=== PATIENT | female | born 1985 | race Caucasian/White ===

== ENCOUNTER → 2023-08-30 | Outpatient (CLI) | payer OTHER, SELFPAY ==
[2023-09-04 11:07] LABS: HPV APTIMA, High Risk Negative (Negative)
== END | disposition home or self-care (01) ==
LOC: LABSPEC 12:57
PROVIDERS: Referring Provider Advanced Practice Midwife; Visit Provider Advanced Practice Midwife
DX: Z12.4 Encounter for screening for malignant neoplasm of cervix (principal)
CPT/HCPCS: 87624; 88175; G0145

== ENCOUNTER → 2023-09-01 | Outpatient (CLI) | payer OTHER, SELFPAY ==
--- NOTE | 2023-09-01 11:13 | US_ITS ---
STUDY: ULTRASOUND OF THE FEMALE PELVIS - COMPLETE REASON FOR EXAM: Female, 37 years old. AUB LMP: August 15, 2023. TECHNIQUE: Transvaginal TECHNICAL QUALITY: Adequate. COMPARISON: None. FINDINGS: The uterus is retroflexed and is in a midline position. The uterus measures 9.7 cm x 5.6 x 4.9 cm. There is a Nabothian cyst of the cervix. The endometrium measures 23 mm in thickness, and is hyperechoic. There is a 2.3 cm x 2.7 sono by 1.2 cm echogenic nodule within the endometrium with vascularity. A neoplastic process should be ruled out. There is no demonstrated endometrial mass. There is no demonstrated myometrial mass. I.U.D. - The patient does not have an I.U.D. The right ovary is visualized. The right ovary measures 4.3 cm x 2.7 sono by 2.5 cm. There is no right ovarian cyst or ovarian mass. There is no visualized right adnexal mass or complex lesion. There is normal arterial and normal venous vascularity. The left ovary is visualized. The left ovary measures 6 cm x 4.6 x 4.6 cm. There is a 5.4 cm x 4.3 cm x 3.8 cm complex cystic mass in the ovary. There is also evidence of heterogeneous mass measuring 1.6 cm x 1.5 cm x 1.2 cm. There is no visualized left adnexal mass or complex lesion. There is normal arterial and normal venous vascularity. There is minimal fluid in the cul-de-sac. US/Transvaginal Non- IMPRESSION: 2.3 cm x 2.7 cm x 1.2 cm echogenic mass in the endometrium with vascularity. A neoplastic process should BE ruled out. There is a dominant 5.4 cm x 4.3 cm x 3.8 cm complex mass in the left ovary. Small amount of free fluid is seen in the cul-de-sac. Electronically Signed: Arpit Christian MD at 12:39 EDT ,
[2023-09-01 11:24] LABS: Absolute Lymphocyte Count 1.63 X10^3/uL (0.83-4.51); Absolute Neutrophil Count 4.1 X10^3/uL (2.0-7.7); Basophil# 0.04 X10^3/uL; Basophil% 0.6 % (0-1); Eosinophil# 0.25 X10^3/uL; Eosinophils% 3.8 % (0-5); Hematocrit 36.1 % (37-47); Hemoglobin 11.5 g/dL (12.0-15.0); Lymphocyte # 1.63 X10^3/ul (0.83-4.51); Lymphocyte % 24.7 % (19-41); Mean Corp Hgb Conc 31.9 g/dL (32-36); Mean Corpuscular Hgb 27.3 pg (27.0-32.0); Mean Corpuscular Volume 85.7 fL (81-99); Mean Platelet Vol. 10.7 fl (6.2-12.0); Monocyte% 9.1 % (0-10); NRBC Flagged by Analyzer 0 % (0-5); Neutrophil # 4.07 X10^3/uL (2.7-7.7); Neutrophil % 61.6 % (47-70); Platelet Count 300 K/mm3 (150-450); RBC Distribution Width SD 43.2 fl (35.1-43.9); Red Blood Count 4.21 M/mm3 (4.2-5.4); White Blood Count 6.6 K/mm3 (4.4-11.0)
[2023-09-01 11:59] LABS: Thyroid Stim Hormone (TSH) 1.83 uIU/mL (0.358-3.74)
== END | disposition home or self-care (01) ==
PROVIDERS: PCP Family Medicine; Referring Provider Advanced Practice Midwife; Visit Provider Advanced Practice Midwife
DX: N93.9 Abnormal uterine and vaginal bleeding, unspecified (principal); Z13.29 Encounter for screening for other suspected endocrine disorder
CPT/HCPCS: 36415; 76830; 84443; 85025

== ENCOUNTER → 2023-09-04 | Outpatient (CLI) | payer OTHER, SELFPAY ==
--- NOTE | 2023-09-04 13:30 | EMB_PTH ---
PATIENT: FRANCISCO WEST LOC: [facility] U#:[id number] AGE/SX: 37/F ROOM: RE09/04/[address]: Dr. Staci Guevara MD : 1985 BED: DIS: 09/04/2023 SPEC #: [id number] RECD: 09/04/23 17:30 STATUS: NAVI REGinny #: [id number] IDA: 09/04/23 13:[address]: Staci Guevara DEPT: SURGICAL PATHOLOGY RECD BY: Laura Young ENTERED: 09/05/23 07:42 SP TYPE: ENDOM BX/C AVERY DR: Dr. Echo Huff MD Tissues: Endometrium, NOS Procedures: Surgery Specimen Level IV HEADER OPERATION: Endometrial biopsy PRE-OP DIAGNOSIS: Abnormal uterine bleeding TISSUE SUBMITTED: Endometrial biopsy MICROSCOPIC DIAGNOSIS Endometrium, biopsy: Secretory endometrium. AM/mr 09/06/2023 MICROSCOPIC DESCRIPTION Slides are reviewed. GROSS DESCRIPTION Received is one container labeled with the patient's name and not further designated. The specimen consists of multiple irregular fragments of pink-red soft tissue that in aggregate measure 3.0 x 2.5 x 0.3 cm. The specimen is totally submitted in one cassette. ESEQUIEL/ 09/05/2023 TC:5 CPT:14918
== END | disposition home or self-care (01) ==
PROVIDERS: PCP Family Medicine; Referring Provider Obstetrics & Gynecology; Visit Provider Obstetrics & Gynecology
DX: N93.9 Abnormal uterine and vaginal bleeding, unspecified (principal)
CPT/HCPCS: 88305

== ENCOUNTER 2023-09-26 11:25 | Day surgery (SDC) | payer SELFPAY, OTHER ==
[2023-09-26] VITALS (11 sets, daily range): BP systolic 146–175; BP diastolic 87–128; PULSE 73–118; RESP 16–20; TEMP 36.6–36.8; O2SAT 92–100; BMI 37.4
[2023-09-26] MEDS: Lactated Ringers 1,000 ML 15 ML IV (11:59)
[2023-09-26 12:00] LABS: Internal QC Validated? YES +Cl - CLEAR BKGD; Pregnancy, Urine Negative Negative
--- NOTE | 2023-09-26 12:26 | PCM.HP.BLA ---
History and Physical Intake Vital Signs 08/29/2410:30 09/03/2412:44 09/03/2412:47 Height 5 ft 5 in 5 ft 5 in 5 ft 5 in Weight: 231 lb 231 lb BMI 38.4 38.4 BP 143/99 H 127/86 H Intake Visit Reasons: EMB, pre-op per SM Conference Services Director Required: No Is patient in pain?: No Allergies No Known Allergies Allergy (Unverified 09/04/23 13:45) Medications ?Medication ?Instructions ?Recorded ?Confirmed ?Type omeprazole 40 mg capsule,delayed 40 mg PO DAILY 08/30/23 08/30/23 History release citalopram 20 mg tablet (Celexa) 20 mg PO DAILY #30 tabs 09/04/23 09/04/23 Rx loratadine 10 mg tablet (Claritin) 10 mg PO DAILY 09/04/23 09/04/23 History Is last menstrual period known: No Post menopausal: No Patient : No : No PFSH PFSH Medical History (Updated 09/12/23 @ 02:[address] Staci Guevara MD) Endometriosis Polycystic bilateral ovaries Migraine Back pain Surgical History (Updated 09/04/23 @ 14:[address] Staci Guevara MD) H/O ovarian cystectomy Family History Sister Uterine cancer Social History adopted: No household members: family housing: house number of children: 3 current occupational status: unemployed leisure activities: reading history of recent travel: No sexually active: Yes Smoking Status: Never smoker alcohol intake: never substance use type: does not use diet: gluten free well-balanced diet: daily or most days caffeine: No eating out: rarely or never during the past year weight has: decreased > 10 lbs mathew/religious: [employer] seatbelt use: always do you feel safe at home: Yes additional social history: - Greg History 3 Elective abortions Hx Para 3 Spontaneous abortions Hx # Term Pregnancies Ectopic pregnancies Hx # Pregnancies Multiple births # of living children HPI EMB, pre-op per SM Details: FRANCISCO WEST is a 37 year old who presents for heavy irregular bleeding. Patient has a history of endometriosis and had previous surgery for this. She is anxious because her sister is a history of endometrial cancer. Pelvic ultrasound showed endometrial lesion and ovarian cyst. Has some pelvic pain and pressure. She denies any dyspareunia. Female Reproductive History Cycle Length: <21 Bleeding Duration: 10 Questions: metorrhagia: No, sexually active: Yes, dyspareunia: No and PCB: No Menopausal Symptoms: No hot flashes, No night sweats, No weight change, No mood changes, No difficulty concentrating, No sleep problems and No change in libido ROS Const Constitutional: Denies fatigue, night sweats, weight gain or weight loss ENT ENT: Reports system reviewed and no additional complaints, except as documented Cardio Card: Denies chest pain Resp Resp: Denies cough or dyspnea GI GI: Reports as per HPI; Denies constipation, nausea or vomiting : Reports as per HPI; Denies hot flashes, nipple discharge, vaginal discharge, vaginal dryness, vaginal odor or vaginal pruritus Musc Musc: Denies arthralgias, back pain or muscle weakness Skin Skin/Breast: Denies alopecia, change in hair, dry skin, breast mass, breast pain, breast skin changes or nipple discharge Neuro Neuro: Reports system reviewed and no additional complaints, except as documented Psych Psych: Reports anhedonia, anxiety, behavioral changes, depression and mood swings; Denies change in libido, difficulty concentrating or suicidal ideation Endo Endo: Denies cold intolerance, excessive sweating, heat intolerance or polydipsia Norman/Lymph Hematologic/Lymphatic: Denies easy bleeding, Denies easy bruising and Denies lymphadenopathy Exam Const General: cooperative, healthy appearing, comfortable, no acute distress and well developed Orientation: alert [facility] Head: normal to inspection and normocephalic Ears: hearing grossly normal bilaterally and external ears normal Nose: external nose normal and nares normal Face and sinus: normal facial exam Neck Neck: normal visual inspection and no lymphadenopathy Thyroid: thyroid normal Chest Chest palpation & inspection: normal inspection of the chest Resp Effort & Inspection: normal respiratory effort Auscultation: clear to auscultation bilaterally Cardio Rate: regular rate Rhythm: regular rhythm Heart Sounds: S1 normal and S2 normal GI Inspection: normal to inspection and non-distended Palpation: soft and no hepatosplenomegaly General: bladder normal to palpation External Female Exam: normal external appearance and normal appearance of the urethra Urethra: normal appearance of the urethra, normal palpation and no discharge Speculum Exam - Vagina: normal appearance of the vagina and normal vaginal discharge Speculum Exam - Cervix: normal appearance of the cervix and nontender Bimanual Exam- Vagina & Uterus: No normal bimanual exam, uterine size normal, bladder normal to palpation, uterine shape normal, No tender, uterine mobility normal, consistency normal, normal palpation, boggy and enlarged (12 week) Bimanual Exam- Adnexa, other: normal adnexae, adnexae mobile, no masses and normal Pelvic Support: normal Musc Other: gross motor intact no deficits, full bilateral strength Skin General: no rashes or lesions noted Neuro General: patient alert, patient awake, moves all extremities and no focal motor deficits Motor: muscle tone normal throughout Extrem General: normal to inspection and no pedal edema Psych Appearance: grossly normal Mental Status: mental status grossly normal Affect: normal affect Speech and Movement: speech and movement normal Office Procedures Endometrial Biopsy Endometrial Biopsy Consent Signed: Yes Time out checklist: patient, procedure, site marked/identified, positioning of patient, supplies available, allergies confirmed and team agrees on procedure tenaculum used: No dilator used: No Details: Cervix prepped with betadine and pipelle inserted into uterus without complication. Specimen obtained and sent to lab for analysis. All instruments removed from vagina without complications. Excellent hemostasis noted. Results POC Urine Office , Urine Negative Last Edit by Codi Calvo on 09/04/23 13:57 Coding Level of Care Code Off vis,est,level 4 Diagnoses Abnormal uterine bleeding N93.9 Endometriosis N80.9 Left ovarian cyst N83.202 CPT Codes Endometrial Biopsy (81265) Assessment and Plan Assessment and Plan (1) Abnormal uterine bleeding: Status: Acute Comment: endometrial polyp or fibroid seen, plan d and c hysteroscopy symphion (2) Endometriosis: Status: Acute (3) Left ovarian cyst: Status: Acute Comment: suspect endometriosis, recommend ovarian cystectomy or oophorectomy, possible bilateral salpingectomy Orders: Orders POC Urine 09/04/23 Z30.9 - Encounter for contraceptive management, unspecified Endometrial Biopsy 09/04/23 N93.9 - Abnormal uterine and vaginal bleeding, unspecified Medications: New citalopram (Celexa) 20 mg PO DAILY 30 tabs 12RF Plan After discussing the patient's diagnosis and treatment plan options, patient wishes to proceed with surgical management. I have discussed with the patient the risks, benefits, and alternatives of the procedure which include but are not limited to risks of anesthesia, bleeding, infection, possible damage to bowel, bladder, or surrounding vasculature which could lead to additional surgery to evaluate any complications. Patient agrees to procedure and wishes to proceed. ACOG/uptodate references given for additional information regarding procedure. UPDATE- I have seen the patient and performed any clinically relevant updates to the history and physical exam. Staci Guevara MD
[2023-09-26 12:30] LABS: Hematocrit 33.4 % (37-47); Hemoglobin 10.5 g/dL (12.0-15.0); Mean Corp Hgb Conc 31.4 g/dL (32-36); Mean Corpuscular Hgb 26.9 pg (27.0-32.0); Mean Corpuscular Volume 85.6 fL (81-99); Mean Platelet Vol. 11.1 fl (6.2-12.0); Platelet Count 270 K/mm3 (150-450); RBC Distribution Width SD 43.4 fl (35.1-43.9)
--- NOTE | 2023-09-26 12:36 | PRE.ANES_ITS ---
ASA Classification* ASA Classification ASA Classification: 2 Assessment & Plan Anesthesia* Anesthesia Assessment Anesthesia Assessment: Discussed sedation and/or anesthesia options, risks, benefits, and alternatives with patient/parents/legal guardian/POA. Questions invited. The patient/parents/legal guardian/POA seems to understand and agrees to proceed with anesthesia plan. Reviewed the physical assessment, medical history, allergy history and patient home medications list prior to surgery/procedure/anesthetic and documented any changes. Performed airway and anesthesia risk assessments. Procedural Plan Procedural Plan:: Proceed w/ Anesthesia plan Anesthesia Type Anesthesia Type: General History Source History Obtained from:: Patient and Chart Anesthesia Focused Assessment* Temperature: 98 F Pulse Rate: 73 Blood Pressure: 147/93 Respiratory Rate: 16 Pulse Ox: 100 Oxygen Delivery Method: Room Air Airway Assessment Mouth opens: >3 cm Mallampati Score: I Teeth Condition: Caps/Crowns (2 molars-tight) Neck Range of motion (ROM): Full ROM Focused Labs Anesthesia Preop lab: CBC WBC 6.0 K/mm3 (4.4-11.0) 09/26/23 11:52 RBC 3.90 M/mm3 (4.2-5.4) L 09/26/23 11:52 Hgb 10.5 g/dL (12.0-15.0) L 09/26/23 11:52 Hct 33.4 % (37-47) L 09/26/23 11:52 Plt Count 270 K/mm3 (150-450) 09/26/23 11:52 CHEMISTRY TSH 1.83 uIU/mL (0.358-3.74) 09/01/23 11:06 COAG Urine Test Negative Negative 09/26/23 11:45 Tst Clinic Negative 09/04/23 13:47 Pre-Assessment Diagnosis/Proposed Procedure Planned Operative Procedure(s): HYSTEROSCOPY D&C POSS POLYPECTOMY MYOMECTOMY LAP OVARIAN CYSTECTOMY OOPHERECTOMY LEFT Anesthesia History Anesthesia History - community relations representative: Anesthesia History - community relations representative Hx Hospitalization No 09/13/23 13:00 Any Problems With Anesthesia Yes: N,V 09/13/23 13:00 Cholinesterase deficiency No 09/13/23 13:00 You/Your Family Experience No 09/13/23 13:00 fever (hyperthermia) with Relationship Recent Exposure to Contagious No 09/26/23 11:57 Disease Does patient have nerve No 09/13/23 13:00 stimulator Patient instructed to have device shut off --Does patient have Pacemaker No 09/26/23 11:57 or ICD? When Was Last Pacemaker Check QUESTION #4 FULL TEXT: You/Your Family Experience fever (hyperthermia) with Anesthesia Last Oral Intake Last Oral intake: Last Oral Intake NPO since Meds taken in AM with sips of water? Meds patient instructed to take am of surgery Any additional information?: Yes NPO since: 00:00 Meds taken in AM with sips of water?: Yes PONV PONV - community relations representative: PONV - community relations representative Female Yes 09/13/23 13:00 HX of Motion Sickness Yes 09/13/23 13:00 HX of N/V After Surgery Yes 09/13/23 13:00 Non-Smoker Yes 09/13/23 13:00 Duration of Surgery greater Yes 09/13/23 13:00 than 60 minutes Number of Risk Factors 5 09/13/23 13:00 PONV Score Severe Risk 09/13/23 13:00 Height & Weight Height & Weight: Anesthesia: Height & Weight Height 5 ft 5 in 09/26/23 11:57 Weight: 102 kg 09/26/23 11:57 Body Mass Index (BMI) 37.4 09/26/23 11:57 Respiratory Assessment Respiratory Assessment - community relations representative: Respiratory Tract Infection Hx - community relations representative Hx Respiratory Tract Infection No 09/13/23 13:00 STOP Sleep Apnea STOP Sleep Apnea - community relations representative: STOP Sleep Apnea - community relations representative Hx Hypertension No 09/13/23 13:00 Hx Sleep Apnea No 09/13/23 13:00 CPAP BIPAP Do you snore loudly (louder Yes 09/13/23 13:00 than talking or can be heard Do you often feel tired/ No 09/13/23 13:00 fatigued/ sleepy during daytime? Has anyone observed you stop No 09/13/23 13:00 breathing during sleep? STOP Results Negative 09/13/23 13:00 QUESTION #5 FULL TEXT : Do you snore loudly (louder than talking or can be heard through closed doors)? Tobacco Use History Tobacco Use History - community relations representative: Tobacco Use History - community relations representative Tobacco Use Smoking Status Never smoker 09/13/23 13:00 Hx Tobacco Use No 09/13/23 13:00 Years Smoking Packs Smoked per Day Smoking Cessation Date was within the last 15 years Hx Smoking Cessation Date Hx Smoking Cessation Counseling Hematologic Medial History Hematologic Hx - community relations representative: Hematologic Medical Hx - recovery room rn Hx of Blood Transfusion No 09/13/23 13:00 Hx of Transfusion in last 3 No 09/13/23 13:00 Months Date of Last Transfusion (if within last 3 months) Ever experience any problems No 09/13/23 13:00 with transfusion(s)? Specify any problems Hx of Preganancy in last 3 No 09/13/23 13:00 Months Nurse Filling Out Transfusion DSCHRIBER 09/13/23 13:00 & Questions: Date: 09/13/23 09/13/23 13:00 Time: 13:02 09/13/23 13:00 Patient unable to answer at this time (ie. confused, unrespo /Reproduction History /Reproductive History - community relations representative: /Reproductive Hx- community relations representative Hx Now No 09/13/23 13:00 Gestational Age (in weeks): EDC: Hx Hx Para Hx Section SAB No 09/13/23 13:00 Active Medications Active Medications: Current Medications Generic Name Dose Route Start Last Admin Trade Name Freq PRN Reason Stop Dose Admin Cefotetan Disodium 2 gm/ 100 mls @ 200 mls/hr 09/26/23 13:50 Sodium Chloride IV 09/26/23 14:19 PREOP ONE Lactated Ringer's 1,000 mls @ 15 mls/hr 09/26/23 11:45 09/26/23 11:59 IV 15 mls/hr .Q48H FLORECITA Administration PFSH Medical History Wears glasses Depression Anxiety Restless legs Dietary restriction Heartburn Shortness of breath on exertion Non-smoker Leg cramps History of edema Globus syndrome Endometriosis Polycystic bilateral ovaries Migraine Home Medications ?Medication ?Instructions ?Recorded ?Last Taken ?Type omeprazole 40 mg capsule,delayed 40 mg PO DAILY 08/30/23 09/26/23 07:30 History release loratadine 10 mg tablet (Claritin) 10 mg PO DAILY 09/04/23 Unknown History fluticasone propionate 50 1 spray intranasal DAILY PRN nasal 09/13/23 Unknown History mcg/actuation nasal congestion spray,suspension (Flonase Allergy Relief) Allergy/AdvReac Type Severity Reaction Status Date / Time citalopram (From Celexa) AdvReac Intermediate Other Verified 09/26/23 11:49 Opioids - Morphine Analogues AdvReac Intermediate Nausea Verified 09/26/23 11:49 (narcotics) Family History Sister Uterine cancer Surgical History History of mandibular surgery H/O ovarian cystectomy Social History adopted: No household members: family housing: house number of children: 3 current occupational status: unemployed leisure activities: reading history of recent travel: No sexually active: Yes Smoking Status: Never smoker alcohol intake: never substance use type: does not use diet: gluten free well-balanced diet: daily or most days caffeine: No eating out: rarely or never during the past year weight has: decreased > 10 lbs mathew/yazidi: [facility] seatbelt use: always do you feel safe at home: Yes additional social history: - Greg Review of Systems (Anesthesia) ROS Narrative System reviewed and no additional complaints, except as documented.
[2023-09-26] MEDS: Cefotetan 2 GM in 0.9% NS 100 ML IV (12:58)
--- NOTE | 2023-09-26 13:00 | OV_PTH ---
PATIENT: FRANCISCO WEST LOC: [facility] [place] U#:[id number] AGE/SX: 37/F ROOM: RE09/26/[address]: Dr. Staci Guevara MD : 1985 BED: DIS: 09/26/2023 SPEC #: [id number] RECD: 09/26/23 17:58 STATUS: NAVI REGinny #: [id number] IDA: 09/26/23 13:[address]: Staci Guevara DEPT: SURGICAL PATHOLOGY RECD BY: Laura Young ENTERED: 09/27/23 10:29 SP TYPE: OVARY OTHR DR: Dr. Echo Huff MD Tissues: A - Ovary, NOS B - Endometrium, NOS Procedures: Surgery Specimen Level IV HEADER OPERATION: Hysteroscopy, D&C, Symphion, left laparoscopic salpingo-oopherectomy PRE-OP DIAGNOSIS: Heavy irregular bleeding TISSUE SUBMITTED: A- Left ovary, left fallopian tube, B- Endometrial curettings MICROSCOPIC DIAGNOSIS A. Left ovary and fallopian tube, salpingo-oopherectomy: Fallopian tube - no pathologic diagnosis. Ovary - Endometriotic cysts. - Physiologic follicular and corpus luteal cysts. B. Endometrial curettings: Simple endometrial hyperplasia without atypia. Fragments of myometrium. / 09/28/2023 MICROSCOPIC DESCRIPTION Slides are reviewed. GROSS DESCRIPTION A. Received in fixative is one container labeled with the patient's name and designated Left ovary and left fallopian tube. The specimen consists of fallopian tube and ovary. Fallopian tube measures 6.5cm in length and 0.8cm in diameter. Fimbral end is identified. Sections reveal unremarkable cut surfaces. No tubal adhesions are noted. Soft to cystic ovary weighs 15.7gm and measures 4.5 x 3.0 x 2.5cm. Outer surface is smooth and inked black. Sections reveal multiple cysts filled with clear to hemorrhagic fluid. The largest cyst measures 2.0cm in greatest dimension. Nut Grinder sections are submitted in five cassettes as follows: 1- fallopian tube, 2-5 ovary. B. Received in fixative is one container labeled with the patient's name and designated Endometrial curettings. The specimen consists of multiple irregular fragments of lyle-pink soft tissue that in aggregate measure 5.0 x 3.0 x 1.0 cm. The specimen is totally submitted in eight cassettes. [facility] 09/27/2023 TC:5 CPT:28154q1
--- NOTE | 2023-09-26 14:43 | PCM.OPRPT ---
Report of Operation Date of Procedure: 09/26/23 Pre-Operative Diagnosis: Abnormal uterine bleeding, left ovarian cyst Post-Operative Diagnosis: adhesions between sigmoid colon and abdominal wall, see Dr. Guevara's report Surgery/Procedure Performed:: Laparoscopic lysis of adhesion Surgeon: Lyndsay Evans industrial equipment mechanic: Bety Holland Type of Anesthesia: General/Supplemental Anesthesiologist: Bryan Serrato Special Medications: Cefotan 2 g IV x 1 Estimated Blood Loss (mL): see OR rep Description of Procedure: Please see Dr. Guevara's dictation for the beginning of the case. Patient was noted to have tight adhesions in the left lower quadrant to the sigmoid colon/diverticuli of the sigmoid colon. An additional 5 mm suprapubic trocar was placed. These were carefully taken down with laparoscopic scissors. Unable to tell 100% if one of the diverticuli tips was intact due to adhesions did place of 5 mm Hem-o-brianna clip on the distal aspect of that diverticuli. There is some bleeding at the abdominal wall which was controlled with LigaSure. Please see Dr. Guevara's dictation for the end of the case. Complications none
--- NOTE | 2023-09-26 14:46 | EX.PCM.CON.S ---
Assessment & Plan Assessment/Plan (1) Intestinal adhesions: PLAN: Plan Lysis of adhesions were completed between the abdominal wall and sigmoid colon. Did discuss with the as well. Lyndsay Evans M.D. Pager: [phone] [facility] [address] [place] [address], [facility], [address] [place] [address] Office: [phone] HPI Consult Data Date of Consult: 09/26/23 HPI Narrative HPI Narrative: FRANCISCO WEST, is a 37 F who is currently undergoing surgery with Dr. Guevara due to abnormal uterine bleeding, left ovarian cyst. Patient was found to have tight adhesion of the sigmoid colon to the abdominal wall. Intraoperative consult was obtained. [facility] Medical History Wears glasses Depression Anxiety Restless legs Dietary restriction Heartburn Shortness of breath on exertion Non-smoker Leg cramps History of edema Globus syndrome Endometriosis Polycystic bilateral ovaries Migraine Home Medications ?Medication ?Instructions ?Recorded ?Last Taken ?Type omeprazole 40 mg capsule,delayed 40 mg PO DAILY 08/30/23 09/26/23 07:30 History release loratadine 10 mg tablet (Claritin) 10 mg PO DAILY 09/04/23 Unknown History fluticasone propionate 50 1 spray intranasal DAILY PRN nasal 09/13/23 Unknown History mcg/actuation nasal congestion spray,suspension (Flonase Allergy Relief) naproxen 500 mg tablet 500 mg PO BID PRN PRN Pain #30 tabs 09/26/23 Unknown Rx oxycodone-acetaminophen 5 mg-325 1 tab PO Q6H PRN pain 7 days #20 09/26/23 Unknown Rx mg tablet (Percocet) tabs Allergy/AdvReac Type Severity Reaction Status Date / Time citalopram (From Celexa) AdvReac Intermediate Other Verified 09/26/23 11:49 Opioids - Morphine Analogues AdvReac Intermediate Nausea Verified 09/26/23 11:49 (narcotics) Family History Sister Uterine cancer Surgical History History of mandibular surgery H/O ovarian cystectomy Social History adopted: No household members: family housing: house number of children: 3 current occupational status: unemployed leisure activities: reading history of recent travel: No sexually active: Yes Smoking Status: Never smoker alcohol intake: never substance use type: does not use diet: gluten free well-balanced diet: daily or most days caffeine: No eating out: rarely or never during the past year weight has: decreased > 10 lbs mathew/episcopalian: [facility] seatbelt use: always do you feel safe at home: Yes additional social history: - Greg Physical Exam Narrative Patient currently under anesthesia in OR. Lab / Micro Data 09/26/23 11:52 Labs: Laboratory Results - last 24 hr 09/26/23 11:42: Blood Type A POSITIVE, Antibody Screen NEGATIVE 09/26/23 11:45: Urine Test Negative 09/26/23 11:52: WBC 6.0, RBC 3.90 L, Hgb 10.5 L, Hct 33.4 L, MCV 85.6, MCH 26.9 L, MCHC 31.4 L, RDW Std Deviation 43.4, RDW Coeff of Marcella 14.0, Plt Count 270, MPV 11.1
[2023-09-26] MEDS: Bupivacaine 0.25% 30 ML Vial (15:23)
--- NOTE | 2023-09-26 15:34 | OP.PCM_ITS ---
Problems Associated Problem List Diagnoses (1) Abnormal uterine bleeding: (2) Left ovarian cyst: (3) Intestinal adhesions: (4) History of left salpingo-oophorectomy: (5) History of hysteroscopy: Report of Operation Date of Procedure: 09/26/23 Pre-Operative Diagnosis: see problem list Post-Operative Diagnosis: same Surgery/Procedure Performed:: laparoscopic left salpingoo-ophorectomy enterolysis d and c hysteroscopy symphion resection left vaginal wall cyst opening Description of Surgical Findings:: stage III endometriosis left ovarian complex endometrioma endometriosis implants all over anterior and posterior uterus and right ovary. Normal-appearing right fallopian tube. Severe sigmoid to anterior abdominal wall adhesions taken down by general surgeon. Surgeon: Staci Guevara store consultant: Bety Holland Type of Anesthesia: General and Local Special Medications: none Specimen's removed: left tube and ovary, EMC Drains: none Estimated Blood Loss (mL): 50 Fluids Replaced: crystalloid Description of Procedure: Patient was taken in the operating room and was placed under general anesthesia was prepped and draped in normal sterile fashion in the dorsal lithotomy position. Bladder was drained of clear urine with Kikr catheter in place and SCDs were on preoperatively. Uterus was sounded and a uterine manipulator was placed after dilating. Attention was then paid to the abdominal portion of the procedure and the umbilicus was elevated with towel clamps and injected with Marcaine and after a 5 mm incision was made and the Veress needle was entered into the abdomen confirmed to be intra-abdominal with a low opening pressure of less than 5 mmHg. Abdomen was insufflated with CO2 gas and a 5 mm optical trocar was placed under direct visualization. A right and left lower quadrant 5 mm ports were placed under direct visualization. Omental to anterior abdominal wall adhesions were seen and taken down. Dense sigmoid colon to anterior abdominal wall adhesions were noted and adhesiolysis was started and then aborted and general surgeon called. Please see her note for additional adhesiolysis information. Additional suprapubic port was placed which was initially 5 mm and then enlarged to 12 mm to remove the ovary later on in the procedure. Uterus was well visualized and bilateral fallopian tubes and ovaries were identified and the left infundibulopelvic ligament was transected across using the LigaSure device followed by transecting across the mesosalpinx to the attachment to the uterine corpus and the left ovary was removed without complication. Excellent hemostasis was noted after using monopolar energy. Endometriosis lesions were ablated with the energy device and excellent hemostasis was noted. Ami placed over the raw areas also. Specimens were removed through the suprapubic port site through a bag without any intra- abdominal spillage of contents. The 12mm fascial incision was closed using the Kartik Hinkle and an 0 Vicryl. Liver and upper abdomen were visualized notably within normal limits and no other gross abnormalities were seen in the abdomen. All instruments removed from the abdomen after gas was desufflated. Port sites were closed with 3-0 Monocryl Steri's and op sites were applied. Symphion hysteroscope was then entered into the cervix into the uterus and thickened li hannah was noted with nonspecific masslike structure. It was difficult to maintain fluid pressure due to leaking out through the cervix. Symphion resection was performed and a large amount of tissue was removed. The cavity was noted to be fairly normal by the end of the procedure with no significant abnormality seen. Fluid deficit was approximately 1500 cc after taking to account the amount of leakage through the vagina. Left 3 cm vaginal wall cyst was noted and opened up with the Bovie and drained of mucus fluid. Excellent hemostasis was noted. All instruments removed from the vagina and patient was awoken and taken recovery in stable condition. Grafts/Implants Used: none Complications none Admit VTE Documentation VTE Present on Admission: No VTE Mechan Device Prophylaxis: SCD's Multi Select Codes Urinary/Genital Urinary/Genital CPT Codes: 69875 Remove vagina gland lesion, 81807 Hysteroscopy,EMC, Polypectomy and 99437 Laproscopic BS/O
--- NOTE | 2023-09-26 15:45 | DCINST_ITS ---
Discharge Instructions Diet Discharge Diet: No restrictions Activity Discharge Activity: Return to Normal Activity, May Not Drive (for 2 weeks or while taking narcotic pain meds.), May Shower and May Take a Tub Bath (in 7 days) May resume sexual activity in: 1 week Weight Bearing Status: Full weight bearing Dressing / Incision Call your doctor if your incision/area has: Continuous Slow Oozing, Sudden Increased Bleeding, Increased Pain/ Swelling, Increased Redness and Foul Smelling Discharge Call your doctor if you observe: Fever of 101 or Higher, Using more than 1 pad per hour, Shortness of breath, Chest pain and Uncontrolled pain Suture Line Care: Avoid Pulling/Pushing and Avoid Pinching/Bending Remove Dressing in: 1 week (if present) Cleanse incision/area with: Soap & Water and Keep Dressing Clean & Dry Follow Up Care When: Call to make an appointment with your doctor for a fu/incision check in 1- 2 weeks. Test Results: Test results from this visit will be discussed in further detail at your follow- up appointment, if applicable. Discharge Plan Admission Attending Provider: Staci Guevara Primary Care Provider: Echo Huff Instructions Print Language: Dominican Discharge Orders/Prescriptions Prescriptions: New oxycodone-acetaminophen [Percocet] 5-325 mg tablet 1 tab PO Q6H PRN (Reason: pain) 7 Days Qty: 20 0RF naproxen 500 mg tablet 500 mg PO BID PRN PRN (Reason: Pain) Qty: 30 1RF No Action omeprazole 40 mg capsule,delayed release(DR/EC) 40 mg PO DAILY loratadine [Claritin] 10 mg tablet 10 mg PO DAILY fluticasone propionate [Flonase Allergy Relief] 50 mcg/actuation spray,suspension 1 spray intranasal DAILY PRN (Reason: nasal congestion) Rx Instructions: administer into each nostril Referrals / Follow Up: Echo Huff MD [Primary Care Provider] - Disposition Disposition (needs filled in before D/C Order can be placed): Home, Self Care
--- NOTE | 2023-09-26 15:45 | PCM.POST.ANE ---
Anesthesia: Postop Eval I Current Vital Signs Temperature: 98.2 F Pulse Rate: 118 Blood Pressure: 155/128 (patient shivering) Respiratory Rate: 20 Pulse Ox: 94 Oxygen Delivery Method: Room Air Assessment Airway patent: Yes Spontaneous unlabored respirations: Yes Mental status: Awake nausea: No Vomiting: No Anesthesia Complication: No Fluid Hydration Crystalloid volume administer (ml): 2,000 Total IV fluid infused: 2,000 Progress Note Anesthesia document: Postop Eval 1 completed: Yes
[2023-09-26] MEDS: HYDROcodone Bitartrate/Apap 5/325 Tablet PO (16:44)
--- NOTE | 2023-09-26 17:05 | POSTOPAN2_ITS ---
Anesthesia Postop Eval I Sum Postop Eval Completion status Anesthesia document: Postop Eval 1 completed: Yes Anesthesia Postop Eval I Summary Anesthesia Postop Eval I Summary: Anesthesia Postop Eval I: Assessment Summary Airway patent Yes 09/26/23 15:47 PLASTIC EXTRUSION OPERATOR.CSIR Spontaneous unlabored Yes 09/26/23 15:47 PLASTIC EXTRUSION OPERATOR.CSIR respirations Mental status Awake 09/26/23 15:47 PLASTIC EXTRUSION OPERATOR.CSIR nausea No 09/26/23 15:47 PLASTIC EXTRUSION OPERATOR.CSIR Vomiting No 09/26/23 15:47 PLASTIC EXTRUSION OPERATOR.CSIR Anesthesia Postop Eval I: Fluid Summary Crystalloid volume administer 2,000 09/26/23 15:47 PLASTIC EXTRUSION OPERATOR.CSIR (ml) Colloids volume administered ( ml) Blood Product volume administered (ml) Total IV fluid infused 2,000 09/26/23 15:47 PLASTIC EXTRUSION OPERATOR.CSIR Anesthesia Postop Eval I: Summary Notes Anesthesia Complication No 09/26/23 15:47 PLASTIC EXTRUSION OPERATOR.CSIR Anesthesia Complication Comment: Post-operative progress note Anesthesia: Postop Eval II Evaluation Mental status: Awake and Calm Pain Level: 0 nausea: No Vomiting: No Complications Anesthesia Complication: No
--- NOTE | 2023-09-26 17:05 | PCM.POSTANE2 ---
Anesthesia Postop Eval I Sum Postop Eval Completion status Anesthesia document: Postop Eval 1 completed: Yes Anesthesia Postop Eval I Summary Anesthesia Postop Eval I Summary: Anesthesia Postop Eval I: Assessment Summary Airway patent Yes 09/26/23 15:47 NUCLEAR OFFICER.CSIR Spontaneous unlabored Yes 09/26/23 15:47 NUCLEAR OFFICER.CSIR respirations Mental status Awake 09/26/23 15:47 NUCLEAR OFFICER.CSIR nausea No 09/26/23 15:47 NUCLEAR OFFICER.CSIR Vomiting No 09/26/23 15:47 NUCLEAR OFFICER.CSIR Anesthesia Postop Eval I: Fluid Summary Crystalloid volume administer 2,000 09/26/23 15:47 NUCLEAR OFFICER.CSIR (ml) Colloids volume administered ( ml) Blood Product volume administered (ml) Total IV fluid infused 2,000 09/26/23 15:47 NUCLEAR OFFICER.CSIR Anesthesia Postop Eval I: Summary Notes Anesthesia Complication No 09/26/23 15:47 NUCLEAR OFFICER.CSIR Anesthesia Complication Comment: Post-operative progress note Anesthesia: Postop Eval II Evaluation Mental status: Awake and Calm Pain Level: 0 nausea: No Vomiting: No Complications Anesthesia Complication: No
== END 2023-09-26 18:05 | disposition home or self-care (01) ==
LOC: SDC 11:28 → AC 11:28
PROVIDERS: PCP Family Medicine; Referring Provider Obstetrics & Gynecology; Visit Provider Obstetrics & Gynecology
PROC: 0UB98ZZ Excision of Uterus, Via Natural or Artificial Opening Endoscopic (ICD-10-PCS; CPT 58558; principal; 2023-09-26 12:45)
DX: N93.9 Abnormal uterine and vaginal bleeding, unspecified (principal); N83.202 Unspecified ovarian cyst, left side; K66.0 Peritoneal adhesions (postprocedural) (postinfection); N83.12 Corpus luteum cyst of left ovary; Z79.899 Other long term (current) drug therapy
CPT/HCPCS: 56740; 58558; 58661; 44180; 00940; 81025; 85027; 86850; 86900; 86901; 88305; J7120; J2405

== ENCOUNTER → 2024-03-05 | Outpatient (CLI) | payer OTHER, SELFPAY | END | disposition home or self-care (01) | LOC: LABSPEC 16:39 | PROVIDERS: PCP Family Medicine; Referring Provider Nurse Practitioner Women's Health; Visit Provider Nurse Practitioner Women's Health | DX: R30.0 Dysuria (principal) | CPT/HCPCS: 87086; 87088; 87186 ==

== ENCOUNTER → 2024-06-17 | Outpatient (CLI) | payer OTHER, SELFPAY ==
--- NOTE | 2024-06-17 09:10 | EMB_PTH ---
PATIENT: FRANCISCO WEST LOC: [facility] U#:[id number] AGE/SX: 38/F ROOM: RE06/17/[address]: Dr. Staci Guevara MD : 1985 BED: DIS: 06/17/2024 SPEC #: [id number] RECD: 06/17/24 13:16 STATUS: NAVI REGinny #: [id number] IDA: 06/17/24 09:[address]: Staci Guevara DEPT: SURGICAL PATHOLOGY RECD BY: Luther Colin ENTERED: 06/17/24 13:17 SP TYPE: ENDOM BX/C AVERY DR: Dr. Echo Huff MD Tissues: A - Endometrium, NOS Procedures: Surgery Specimen Level IV HEADER OPERATION: Endometrial biopsy PRE-OP DIAGNOSIS: Simple endometrial hyperplasia without atypia TISSUE SUBMITTED: A- Endometrial tissue MICROSCOPIC DIAGNOSIS A. Endometrium, biopsy: - Inactive endometrium with pseudodecidual stromal change - Fibrinoid necrotic debris - Negative for hyperplasia MICROSCOPIC DESCRIPTION Slides are reviewed. GROSS DESCRIPTION A. Received in fixative is one container labeled with the patient's name and designated Endometrial biopsy. The specimen consists of multiple fragments of lyle tissue that in aggregate measure 2.5 x 2 x 0.2cm submitted in its entirety in one cassette. 06/17/2024 CPT:70939
== END | disposition home or self-care (01) ==
LOC: LABSPEC 11:37
PROVIDERS: PCP Family Medicine; Referring Provider Obstetrics & Gynecology; Visit Provider Obstetrics & Gynecology
DX: N85.01 Benign endometrial hyperplasia (principal)
CPT/HCPCS: 88305

== ENCOUNTER → 2024-12-19 | Outpatient (CLI) | payer OTHER, SELFPAY ==
--- NOTE | 2024-12-19 | EMB_PTH ---
PATIENT: FRANCISCO WEST LOC: [facility] U#:[id number] AGE/SX: 39/F ROOM: RE12/19/[address]: Dr. Staci Guevara MD : 1985 BED: DIS: 12/19/2024 SPEC #: [id number] RECD: 12/19/24 12:09 STATUS: NAVI REQ #: [id number] IDA: 12/19/24 00:[address]: Staci Guevara DEPT: SURGICAL PATHOLOGY RECD BY: Luther Colin ENTERED: 12/19/24 12:26 SP TYPE: ENDOM BX/C AVERY DR: Dr. Echo Huff MD Tissues: A - Endometrium, NOS Procedures: Surgery Specimen Level IV HEADER OPERATION: Endometrial biopsy PRE-OP DIAGNOSIS: Simple endometrial hyperplasia without atypia TISSUE SUBMITTED: A- Endometrial tissue MICROSCOPIC DIAGNOSIS A. Endometrium, biopsy: * Fragments of inflamed and necrotic endometrium, inactive with decidual-like stromal change - see note. * No hyperplasia is seen. Note: The history of progesterone/IUD therapy and negative test is noted. MICROSCOPIC DESCRIPTION Slides are reviewed. GROSS DESCRIPTION A. Received in formalin labeled with the patient's name and date of is a 2.5 x 1.9 x 0.4 cm aggregate of mucoid material, clotted blood and possible tissue fragments. Entirely submitted in 1 cassette. OK 12/19/2024 CPT:22026
== END | disposition home or self-care (01) ==
LOC: LABSPEC 10:31
PROVIDERS: PCP Family Medicine; Referring Provider Obstetrics & Gynecology; Visit Provider Obstetrics & Gynecology
DX: N85.00 Endometrial hyperplasia, unspecified (principal)
CPT/HCPCS: 88305